=== PATIENT | female | born 1945 | race Caucasian/White ===

== ENCOUNTER 2017-11-28 05:32 | Inpatient (IN) ==
[2017-11-28 05:53] VITALS: BMI 37.9
[2017-11-28] MEDS ORDERED: METOCLOPRAMIDE 10mg/2ml INJECTION IVP ONE (06:00)
[2017-11-28] MEDS ORDERED: TRANEXAMIC ACID 1,000 MG in NS 100 ML IV ONE ×2 (06:00→07:00)
[2017-11-28] MEDS ORDERED: FAMOTIDINE PB 20 MG/50 ML BAG IV ONE (06:00)
[2017-11-28] MEDS ORDERED: ACETAMINOPHEN 500 MG TABLET PO ONE (06:00)
[2017-11-28] MEDS ORDERED: DEXAMETHASONE 4 MG/ML INJECTION IVP ONE (06:00)
[2017-11-28] MEDS ORDERED: LIDOCAINE 1% (10mg/ml) 2mL INJ PF SDV ID ONE (06:00)
[2017-11-28] MEDS ORDERED: MELOXICAM 15 MG TABLET PO ONE (06:00)
[2017-11-28] MEDS ORDERED: ONDANSETRON 4 MG/2 ML INJECTION IVP ONE (06:00)
[2017-11-28] MEDS: LR 1,000 ML IV SCH ×2 (06:15→08:15)
[2017-11-28] MEDS: NOZIN NASAL SWAB NAS SCH ×6 (06:21→21:47)
[2017-11-28] MEDS ORDERED: CEFAZOLIN 1 G INJECTION IVP ONE (06:23)
--- NOTE | 2017-11-28 06:37 | Anesthesia Preoperative Report ---
Anesthesia Preoperative Record - Date and Time Date: 11/28/17 Preoperative Diagnosis: Rt HARJINDER M16.11 Proposed Procedure: Right Total hip NPO Since Date: 11/28/17 NPO Since Time: 00:00 Allergies/Adverse Reactions: Allergies Allergy/AdvReac Type Severity Reaction Status Date / Time No Known Drug Allergies Allergy Unknown Verified 11/28/17 06:01 - Vital Signs Vital Signs: Temperature 97.9 F 11/28/17 05:52 Pulse Rate 78 11/28/17 06:09 Respiratory Rate 14 11/28/17 05:52 Blood Pressure 131/60 11/28/17 05:52 Pulse Oximetry 97 11/28/17 05:52 Height and Weight: Height 1.71 m Weight 111.5 kg Body Mass Index 37.9 - Medications Inpatient Medications: Current Medications Cefazolin Sodium (Kefzol) 2 g IVP PREOP ONE Stop: 11/28/17 06:24 Epinephrine HCl 0.25 mg/Bupivacaine HCl 30 ml/Ketorolac Tromethamine 60 mg/ Sodium Chloride 62.25 mls @ 0 mls/hr OPSITE INTRAOP ONE; Per Protocol PRN Reason: Protocol Stop: 11/28/17 08:01 Tranexamic Acid 1,000 mg/ (Sodium Chloride) 110 mls @ 660 mls/hr IV INTRAOP ONE Stop: 11/28/17 07:09 Lactated Ringer's (Lactated Ringers) 1,000 mls @ 50 mls/hr IV .Q20H [facility] Last Admin: 11/28/17 06:15 Dose: 50 mls/hr Isopropyl Alcohol (Nozin Nasal Swab) 1 each JOHN Q1M KITTY Stop: 11/28/17 15:03 Last Admin: 11/28/17 06:31 Dose: 1 each Sodium Chloride (Iv Flush) 10 - 80 ml IV PRN PRN PRN Reason: Flushing Home Medications: Home Medications Medication Instructions Recorded Confirmed Type Mobic (Meloxicam) 7.5 mg tablet 7.5 mg PO DAILY tab 06/18/17 11/27/17 History levothyroxine 100 mcg tablet 100 mcg PO QAM #90 tab 07/23/17 11/28/17 Rx omega-3 fatty acids 1,000 mg 3,000 mg PO 1200 07/23/17 11/27/17 History capsule Calcium Carbonate [[id number]] 500 mg PO 1200 11/04/17 11/27/17 History Cyanocobalamin (Vitamin B-12) 1 tab PO 1200 11/04/17 11/28/17 History [Vitamin B-12] magnesium 200 mg tablet 400 mg PO 1200 11/04/17 11/27/17 History Cholecalciferol (Vitamin D3) 1 cap PO DAILY 11/28/17 11/28/17 History [Vitamin D3] Docusate Sodium [Colace] 1 cap PO BID 11/28/17 11/28/17 History Triamcinolone 0.1% Cream 15 G 1 applicatio TOP PRN 11/28/17 11/28/17 History [Kenalog] Is Patient on Beta Charu?: No - Medical History Respiratory: DENIES: Sleep Apnea Cardiovascular: Reports: Valvular Heart Disease (asymptomatic MVP) Neuro/Musculoskeletal: Reports: HX.MS.[email or web address] Renal/Endocrine: Reports: Thyroid Disease (hypothyroidism) Other History: Comment Only: Anesthesia Reactions (no known family problems with anesthesia) - Surgical History Anesthesia Reactions: None Hx Family Anesthesia Reaction: No History of Motion Sickness: No - Social History Smoking Status: Never smoker Hx Chewing Tobacco Use: No Second Hand Exposure: No Substance Use Type: does not use Alcohol Intake Frequency: does not drink - Pertinent Findings EKG: Sinus Rhythm - Physical Exam Respiratory Exam: Present: lungs clear, other (non productive cough, clear chest x ray) Cardiovascular Exam: Present: regular rate and rhythm - Airway Assessment Mallampati Score: II TMD: 3 Fingerbreadths Neck Extension: fair Overall Assessment: no airway concerns - ASA ASA Score: 2 - Plan Anesthesia: Neuroaxial Regional/Trunk Block: Spinal - Discussion Discussion: Discussed risks/options/alternatives of anesthesia and questions answered. Patient consents. Nursing pain assessment noted. Present for Discussion: spouse Attestation Statement: Prior to the delivery of any anesthetic medication, I examined the patient, developed the plan, obtained the patient's consent and discussed the risk and benefits of the procedure with the patient/guardian.
[2017-11-28] MEDS ORDERED: VANCOMYCIN 1,000 MG INJECTION ONE ×2 (06:46→10:28)
[2017-11-28] MEDS ORDERED: VANCOMYCIN 1,000 MG INJECTION IAR ONE (06:56)
[2017-11-28] MEDS ORDERED: PROPOFOL 500 MG/50 ML VIAL ONE ×2 (07:03→08:11)
[2017-11-28] MEDS ORDERED: MIDAZOLAM 2mg/2ml INJECTION ONE (07:04)
[2017-11-28] MEDS ORDERED: FentaNYL 250 MCG/5 ML INJECTION ONE (07:04)
[2017-11-28] MEDS ORDERED: BUPIVACAINE 0.5% (5mg/ml) PF 30ml INJ SDV ONE (07:05)
[2017-11-28] MEDS ORDERED: LIDOCAINE 2% (100mg/5mL) 5ml PF SDV ONE (07:05)
[2017-11-28] MEDS ORDERED: EPHEDRINE 50mg/ml INJECTION ONE (07:57)
[2017-11-28] MEDS ORDERED: EPINEPHrine PF 0.25 MG, BUPIVACAINE 0.25% PF 30 ML, KETOROLAC INJ 60 MG in NS 30 ML OPSITE ONE (08:00)
--- NOTE | 2017-11-28 09:04 | Operative Note ---
- Procedure Preoperative Diagnosis: Right hip primary degenerative joint disease Postoperative Diagnosis: Same as preoperative diagnosis. Surgeon: Catarino Baez MD Head Soft Sugar Operator: Robbie Estrada Complications: None. Anesthesia: Spinal. Estimated Blood Loss: See Anesthesia Record. Fluids: Please see Anesthesia Record. Description of Procedure: Mrs. Acosta and her right hip were identified and marked in the preoperative holding area. She was brought back to the operating suite and spinal anesthetic was administered. She was then placed in a lateral decubitus position with her right hip up. The right lower extremity was prepped and draped in my normal sterile fashion. Timeout was performed. The [employer] J[employer]yin robotic arm was used to assist with the surgery. A pelvic array was placed into the iliac crest through three small incisions. A direct superior approach was utilized. An approximately 15 cm incision was made in the skin and dissection carried down to the muscle fascia which was then split in line with skin incision. The short external rotators were identified and tagged and detached. A capsulotomy was performed and the hip dislocated. A femoral neck osteotomy was performed at the pre-templated level measuring down from the femoral head. The head was removed and acetabulum exposed. Labrum was removed. She had large paralabral cyst superiorly. The acetabulum was then registered with the robot. The robotic arm was then used to ream with a 53 reamer. The robot then was again used to place a 54 Trident cup in 40 of tilt and 25 of anteversion. A liner was then placed. The proximal femur was exposed and prepared with a cookie cutter followed by reaming and broaching to a size 5. We trialed with a -5 head. This gave her good leg length and she was nice and stable throughout range of motion. After thorough irrigation a final Accolade 2 size 5 stem with 127 neck was placed. Leg length and offset were checked with the robot and were good. A final -5 metal 36 mm head was placed and the hip reduced. Betadine solution was used to irrigate throughout the case. It was followed by normal saline irrigation. Joint cocktail was injected throughout soft tissue. The capsulotomy was repaired with Ethibond. Short external rotators were also repaired with Ethibond. 1 g of vancomycin powder was placed into the wound. The muscle fascia was then repaired with #1 Vicryl. I then left my ict sales assistant to close the subcutaneous tissue with 2-0 Vicryl followed by running 4-0 Monocryl skin followed by Dermabond and a sterile dressing. The patient with any placed back into supine position and taken to recovery room in the care of anesthesia.
[2017-11-28] MEDS ORDERED: FentaNYL 100 MCG/2 ML INJECTION IVP PRN (09:40)
[2017-11-28] MEDS ORDERED: ONDANSETRON 4 MG/2 ML INJECTION IVP PRN (09:40)
[2017-11-28] MEDS: HYDROMORPHONE 2 MG/ML INJECTION IVP PRN ×2 (09:42→09:55)
--- NOTE | 2017-11-28 09:43 | Anesthesia Postoperative Note ---
- Date and Time Date: 11/28/17 Time: 09:43 - Status Patient Participated in Evaluation: Patient Participated in Person Vital Signs: Temperature 97.9 F 11/28/17 05:52 Pulse Rate 78 11/28/17 06:09 Respiratory Rate 14 11/28/17 05:52 Blood Pressure 131/60 11/28/17 05:52 Pulse Oximetry 97 11/28/17 05:52 Respiratory Function: Airway Patent Cardiovascular Function: Regular Pulse EKG: Sinus Rhythm Mental Status: Alert and Oriented Pain Intensity: 5 Hydration: IV Infusing Complications During Recover: None Apparent - Follow-Up Instructions Instructions: Per Surgeon
[2017-11-28] MEDS ORDERED: DiphenhydrAMINE 50 MG/ML INJECTION IVP PRN (10:36)
[2017-11-28] MEDS ORDERED: TRIAMCINOLONE 0.1% CREAM 15 G TUBE TOP SCH (10:36)
[2017-11-28] MEDS ORDERED: DiphenhydrAMINE 25 MG CAPSULE PO PRN (10:36)
[2017-11-28] MEDS ORDERED: LORazepam 1 MG TABLET PO PRN (10:36)
[2017-11-28] MEDS ORDERED: MELOXICAM 7.5 MG TABLET PO SCH (10:36)
[2017-11-28] MEDS ORDERED: NOZIN NASAL SWAB NAS ONE (10:36)
[2017-11-28] MEDS: NS 1,000 ML IV SCH ×2 (10:37→22:18)
--- NOTE | 2017-11-28 10:38 | XRay Report ---
Indication: postoperative image PROCEDURE: XR pelvis w/ 1 view RT hip: Encounter: Initial Comparison: November 04, 2017 Findings: Postoperative changes of right total hip replacement are seen. There is expected postoperative subcutaneous gas. No evidence of hardware failure or acute fracture. No retained radiopaque surgical instruments or sponges seen. Impression: New right total hip prosthesis without evidence of immediate complication. .
[2017-11-28] MEDS ORDERED: PROPOFOL 40 ML ONE (11:10)
[2017-11-28] MEDS: LEVOTHYROXINE 100 MCG TABLET PO SCH (11:25)
[2017-11-28] MEDS: ACETAMINOPHEN 325 MG TABLET PO SCH ×3 (13:28→20:40)
[2017-11-28] MEDS: CEFAZOLIN 2 G in NS 100 ML IV SCH ×2 (14:28→22:18)
[2017-11-28] MEDS ORDERED: SALINE FLUSH 10ml SYRINGE IV PRN (14:55)
[2017-11-28] MEDS: ONDANSETRON 4 MG/2 ML INJECTION IVP PRN ×2 (15:19→19:29)
[2017-11-28] MEDS: DOCUSATE SODIUM 100 MG CAPSULE PO SCH (20:39)
[2017-11-28] MEDS: ASPIRIN *EC* 81 MG TABLET PO SCH (20:40)
[2017-11-28] MEDS ORDERED: SENNOSIDES 8.6 MG TABLET PO SCH (21:00)
[2017-11-29] MEDS: TRAMADOL 50 MG TABLET PO PRN ×2 (05:08→08:43)
[2017-11-29] MEDS: NOZIN NASAL SWAB NAS SCH (05:09)
[2017-11-29] MEDS: LEVOTHYROXINE 100 MCG TABLET PO SCH (05:43)
[2017-11-29] MEDS ORDERED: MELOXICAM 7.5 MG TABLET PO SCH (08:00)
[2017-11-29 08:09] VITALS: TEMP 97.8
--- NOTE | 2017-11-29 08:39 | Orthopedic Progress Note ---
Date: Date: 11/29/17 Time: 834 Subjective/Severity of Illness: Pt is doing very well this AM. Pain is controlled. She is hopeful to go home later today. No CP, cough or SOA. Hgb 11.1 Dressing is dry. Orthopedic Exam Vital signs: Temperature 97.8 F 11/29/17 08:04 Pulse Rate 58 L 11/29/17 08:04 Respiratory Rate 18 11/29/17 08:04 Blood Pressure 104/52 11/29/17 08:04 Pulse Oximetry 97 11/29/17 08:04 - Constitutional General Appearance: Present: alert, cooperative, no acute distress - Respiratory Exam Present: non-labored - Cardiovascular Exam Present: pedal pulses intact - Extremities Exam Present: pulses intact. Absent: calf tenderness - Integumentary Exam Present: pink, warm, dry - Neurological Exam Present: no deficits - Psychiatric Exam Present: alert, normal affect - Labs Result Diagrams: 11/29/17 04:08 11/29/17 04:08 Abnormal lab results 11/29/17 11/29/17 Range/Units 04:08 04:08 Hgb 11.1 L (12-16) GM/DL Hct 33.3 L (36-46) % Glucose 121 H (65-110) MG/DL H & H 11/29/17 Range/Units 04:08 Hgb 11.1 L (12-16) GM/DL Hct 33.3 L (36-46) % Orthopedic Assessment and Plan (1) Primary osteoarthritis of right hip Status: Acute Assessment and Plan: Aspirin protocol for VTE prophylaxis. SCD's for added DVT coverage. PT/OT services to improve independent function. Discharge Planning per Case Management. Disposition at discharge is home. F/U in 3 weeks in ortho clinic. - Anticoagulation Therapy Anticoagulation: ASA 81 mg PO BID x6 weeks Hospital Course Summary Disclaimer: The visit summary below is not to be considered part of the above Progress Note.
[2017-11-29] MEDS: ACETAMINOPHEN 325 MG TABLET PO SCH ×2 (08:42→13:36)
[2017-11-29] MEDS: ASPIRIN *EC* 81 MG TABLET PO SCH (08:43)
[2017-11-29] MEDS: DOCUSATE SODIUM 100 MG CAPSULE PO SCH (08:44)
[2017-11-29] MEDS ORDERED: POLYETHYL GLYCOL 3350 17gm PACKET PO SCH (09:00)
[2017-11-29] MEDS ORDERED: SENNOSIDES 8.6 MG TABLET PO PRN (09:01)
--- NOTE | 2017-11-29 13:04 | Discharge Summary ---
Orthopedic Discharge Info Date of admission: 11/28/17 05:32 Anticipated date of discharge: 11/29/17 Primary care physician: José Miguel Vega MD Attending Physician: Pedro Luis Baez MD Consults: 11/28/17 05:35 Consult to Anesthesiology [CONS] Routine Reason For Exam: Preoperative Assessment 11/28/17 10:36 Case Management Consult [CONS] Routine Reason For Exam: Discharge Planning DME-Walker [CONS] Routine Height: 5 ft 7.5 in Weight: 111.5 kg Total Joint Outpatient Therapy [CONS] Routine Comment: Remove dressing in 2 weeks - Discharge Diagnosis (1) Primary osteoarthritis of right hip Status: Acute - Procedures Procedures: Rt HARJINDER 11/28/17 - Laboratory Result Diagrams: 11/29/17 04:08 11/29/17 04:08 Laboratory: Abnormal lab results 11/29/17 11/29/17 Range/Units 04:08 04:08 Hgb 11.1 L (12-16) GM/DL Hct 33.3 L (36-46) % Glucose 121 H (65-110) MG/DL H & H 11/29/17 Range/Units 04:08 Hgb 11.1 L (12-16) GM/DL Hct 33.3 L (36-46) % Orthopedic Discharge HPI - HPI Comments This patient was admitted for elective surgical tx of end stage degenerative joint disease that failed to respond to conservative treatment. Further details of this is found in the admission H&P. Orthopedic Hospital Course Hospital course: 11/29/17 13:00 After appropriate preoperative clearance and signing of operative consent, the patient was given IV antibiotics, according to orthopedic protocol. The patient was taken to the operating room and underwent elective right total hip arthroplasty. Following surgery, antibiotics were discontinued less than 24 hours according to joint protocol. Aspirin was initiated and SCDs added for DVT prevention. The dressing was clean, dry, and intact. Pain control was obtained via multimodal approach. Bowel motivation addressed with scheduled and PRN medications. Early mobilization was initiated through PT services. Discharge arrangements made by a collaborative effort between the patient and Case Management. Follow-up is scheduled in 2-3 weeks. Discharge instructions given by orthopedic providers and nursing staff at discharge. Discharge condition was good. Care extended to > 2 midnight stays?: No Discharge Plan - Med Rec/Dispo Referrals/Follow Up: Pedro Luis Baez MD [Physician] - 12/23/17 9:30 am [place] Instructions: [facility] Ortho Postop Instructions Additional Instructions: [facility] ON 12/02/2017 AT 2:30PM. PLEASE COMPLETE THE PAPERWORK IN THE [facility] FOLDER PRIOR TO THE APPOINTMENT. PHONE [phone] Prescriptions: New Acetaminophen [Tylenol] 650 mg PO QID tab Aspirin *EC* [Ecotrin] 81 mg PO BID tab Docusate Sodium [Colace] 100 mg PO BID cap Milk of Magnesia [Mom] 30 ml PO DAILY udc Tramadol [Ultram] 50 - 100 mg PO Q6H PRN #60 tab PRN Reason: Pain PEG 3350 17gm PACKET [Miralax] 17 gm PO DAILY packet Continue Cyanocobalamin (Vitamin B-12) [Vitamin B-12] 1 tab PO 1200 Calcium Carbonate [[id number]] 500 mg PO 1200 Docusate Sodium [Colace] 1 cap PO BID Cholecalciferol (Vitamin D3) [Vitamin D3] 1 cap PO DAILY Triamcinolone 0.1% Cream 15 G [Kenalog] 1 applicatio TOP PRN Mobic (Meloxicam) 7.5 mg tablet 7.5 mg PO DAILY tab omega-3 fatty acids 1,000 mg capsule 3,000 mg PO 1200 levothyroxine 100 mcg tablet 100 mcg PO QAM #90 tab magnesium 200 mg tablet 400 mg PO 1200 - Disposition 01 Discharged Home, Self-Care - Dismissal Complete Discharge Instructions are:: Complete
[2017-11-29 13:16] VITALS: BP 107/52; PULSE 60; RESP 16; O2SAT 98
[2017-11-30] MEDS ORDERED: BISACODYL 10 MG SUPPOSITORY RECTALLY SCH (20:00)
== END 2017-11-29 14:30 | disposition home or self-care (01) | DRG 470 ==
LOC: NMC.PERIOP 05:32 → SRG 10:28
PROVIDERS: ADMIT Orthopaedic Surgery; ATTEND Orthopaedic Surgery